=== PATIENT | male | born 1990 | race Caucasian/White ===

== ENCOUNTER 2018-03-06 17:31 | Day surgery (SDC) | payer SELFPAY ==
[~2018-03-06 17:31] MED LIST: Dexamethasone 20 MG/5 ML VIAL ONE; Glycopyrrolate 0.2 MG/ML 5 ML SYRINGE ONE; Ketorolac Tromethamine 30 MG/ML VIAL ONE; Lidocaine 1% PF 5 ML VIAL ONE; Ondansetron HCl/PF 4 MG/2 ML Vial ONE; PROPOFOL 200 MG/20 ML VIAL ONE; Succinylcholine Chloride 20 MG/ML 10 ml SYRINGE FS ONE
[2018-03-06] MEDS ORDERED: Fentanyl 100 MCG/2 ML VIAL ONE (19:50)
[2018-03-06] MEDS ORDERED: Midazolam HCl 2 mg/2 ml Vial ONE (19:50)
[2018-03-06] MEDS ORDERED: HYDROmorphone 2 MG/ML VIAL ONE (19:51)
[2018-03-06] MEDS ORDERED: Bupivacaine/Epinephrine 0.25% 30 ML VIAL ONE (20:33)
[2018-03-06] MEDS ORDERED: SUGAMMADEX SODIUM 200 MG/2 ML VIAL ONE (21:04)
[2018-03-06] MEDS ORDERED: HYDROcodone/Acetaminophen 10/325 mg Tablet ONE ×2 (22:18→22:38)
[2018-03-06] MEDS ORDERED: Ondansetron ODT 4 MG TAB ONE (22:38)
--- NOTE | 2018-03-06 23:14 | HP ---
CHIEF COMPLAINT: Right lower quadrant pain. HISTORY OF PRESENT ILLNESS: This is a 27-year-old male who has had diffuse abdominal discomfort asso ciated with nausea and vomiting for the last few days, became more localized to his right lower quadr ant today. Pain is described as 9/10, sharp, does not radiate, associated with nausea and he did vom it. No change in stools. No history of chronic inflammatory bowel disease or Crohn's. Seen in the [facility] Emergency Room where he was found to have a CT-proven appendicitis. PAST MEDICAL HISTORY: Denies. PAST SURGICAL HISTORY: Denies. MEDICINES TAKEN DAILY: None. ALLERGIES: No known drug allergies. SOCIAL HISTORY: No smoking, alcohol, or other drugs. REVIEW OF SYSTEMS: Ten-system review of systems otherwise negative described above. PHYSICAL EXAMINATION: HEENT: Sclerae are anicteric. Oropharynx clear. NECK: No lymphadenopathy. CHEST: Clear. HEART: Regular rate and rhythm. ABDOMEN: Soft, tender in right lower quadrant with localized guarding. No rebound, no abdominal her nias. EXTREMITIES: No ischemia or edema to extremities. IMAGING: CT shows acute appendicitis. ASSESSMENT: Acute appendicitis. PLAN: Laparoscopic appendectomy. Risks, benefits, alternatives discussed. He gives consent. We wi ll do this today.
--- NOTE | 2018-03-06 23:31 | OP ---
DATE OF PROCEDURE: 03/06/2018 PREOPERATIVE DIAGNOSIS: Acute appendicitis. POSTOPERATIVE DIAGNOSIS: Acute appendicitis. PROCEDURE: Laparoscopic appendectomy. SURGEON: Avila Brewster M.D ANESTHESIA: General. ESTIMATED BLOOD LOSS: Minimal. COMPLICATIONS: None. SPECIMEN: Appendix. FINDINGS: Appendicitis. TECHNIQUE: The patient was taken to the operating room and placed supine on the table. After general anesthetic was obtained, a Limon catheter was placed. The abdomen was shaved, prepped, and draped i n a sterile fashion. Curved incision was made below the umbilicus. Cautery was used to dissect down to and score the fascia. Abdominal cavity entered bluntly using a Mery clamp. Holding stitch of P DS placed on each side of the facet. Gold trocar was placed. High-flow pneumoperitoneum was obtai meredith. A suprapubic 5-mm port, left lower quadrant 5-mm port were placed under direct visualization. The cecum was rolled over to reveal acute appendicitis. A small window was made at the base of the a ppendix and mesoappendix. Laparoscopic stapler fired across the base of the appendix. A vascular re load fired across the mesoappendix. Appendix placed in the endocatch bag and brought out through the [place]. There was no bleeding. There was no damage to any intraabdominal structures. All ports arnoldo t seems using local anesthetic. All ports are removed under camera visualization. Pneumoperitoneum is let down. PDS used to close the fascial defect below the umbilicus. All incisions were irrigated and closed using 4-0 Monocryl and Dermabond. The patient en route to recovery in stable condition. All instrument counts, needle counts, lap counts were correct.
== END 2018-03-06 22:50 | disposition home or self-care (01) ==
LOC: SDC 17:31
PROVIDERS: ATTEND Surgery
PROC: 0DTJ4ZZ Resection of Appendix, Percutaneous Endoscopic Approach (ICD-10-PCS; principal; 2018-03-06)
DX: K35.80 Unspecified acute appendicitis (principal)
CPT/HCPCS: 88304; J1100; J1170; J1885; J2001; J2250; J2405; J2704; J3010; Q0162